=== PATIENT | female | born 1960 | race Caucasian/White ===

== ENCOUNTER → 2016-09-18 | Outpatient (CLI) | payer BC ==
--- NOTE | 2016-09-21 21:51 | DI ---
MRI LUMBAR SPINE SCAN WITHOUT IV CONTRAST, 09/18/2016 1:48 PM: Clinical History: Low back pain. Previous Exam: None. Technique: Sagittal and axial T2 weighted; sagittal T1 weighted and T2 STIR; and axial PD. The vertebral bodies are of normal height and size. There is minimal disc space narrowing at L4-5. Th e remaining lumbar disc spaces are of normal height. Moderate desiccation change is present at L4-5 a nd the remaining lumbar disc spaces show mild desiccation change. The cord terminates at L1, and the conus medullaris is normal. There is a bulging but not herniated disc without canal or neural foramin al stenosis at T11-12. The T12-L1 disc space is normal. The L1-2 disc space has a circumferentially b ulging but not herniated disc without canal or neural foraminal stenosis. L2-3 and L3-4 disc spaces a re normal. L4-5 has a circumferentially and primarily left sided bulging but not herniated disc witho ut canal or neural foraminal stenosis. L5-S1 disc space has a bulging but not herniated disc without canal or neural foraminal stenosis. Readin. There are bulging but not herniated discs without canal or neural foraminal stenosis at T11-12, L 1-2, L4-5, and L5-S1. 2. The T12-L1, L2-3, and L3-4 disc spaces are normal.
== END ==
LOC: MRI 13:41
PROVIDERS: ATTEND Chiropractor
DX: M54.5 Low back pain (principal); M47.816 Spondylosis without myelopathy or radiculopathy, lumbar region; M47.817 Spondylosis without myelopathy or radiculopathy, lumbosacral region
CPT/HCPCS: 72148

== ENCOUNTER → 2017-01-15 | Outpatient (CLI) | payer BC ==
--- NOTE | 2017-01-15 17:56 | DI ---
CT HEAD SCAN WITHOUT IV CONTRAST, 01/15/2017 2:38 PM : Clinical History: Trigeminal neuralgia of the left side of the face Previous Exam: None at this facility. Scans are obtained from the foramen magnum to the vertex without IV contrast. The 4th, 3rd, and lateral ventricles are of normal size, shape, position, and contour. There are no abnormal areas of increased or decreased density. There is no intracranial hemorrhage. Bone window evaluation is normal. The paranasal sinuses are normal. READING: Normal non contrast CT head scan.
--- NOTE | 2017-01-15 17:56 | DI ---
US CAROTIDS B/L,01/15/2017 2:38 PM: Clinical History: Trigeminal neurology of the left side of the face. Previous Exam: None at this facility. Findings: Multiple grayscale and color Doppler sonographic images are obtained through the carotid systems bila terally demonstrating no hemodynamically significant stenosis. There is no spectral broadening. The I CA to CCA ratio on the right measured 1.2, left measured 0.7. There is antegrade flow within the vert ebral arteries. Impression: No hemodynamically significant stenosis.
== END ==
LOC: US 14:32
PROVIDERS: ATTEND Family Medicine
DX: G50.0 Trigeminal neuralgia (principal); G51.0 Bell's palsy
CPT/HCPCS: 70450; 93880

== ENCOUNTER → 2017-01-22 | Outpatient (CLI) | payer BC ==
--- NOTE | 2017-01-24 10:55 | DI ---
MRI BRAIN W/WO ANGELIC,01/22/2017 10:05 AM: Clinical History: Left hemifacial paralysis. Previous Exam: None at this facility. Findings: Multiplanar MR images are obtained through the brain both with and without contrast, and demonstrate normal, symmetric ventricles and other CSF containing spaces for age. There is no mass, hemorrhage or midline shift. Surrounding soft tissue structures are unremarkable. There are a few scattered areas of increased FLAIR and T2 signal predominantly within the right periv entricular white matter. There is no abnormally restricted diffusion. Visualized portions of the clivus and the upper cervical spine are unremarkable. The midline structures are unremarkable. The sellar and parasellar regions are unremarkable. Post enhanced T1 images demonstrate no enhancement of the areas of increased T2 signal. Brain stem is unremarkable. The paranasal sinuses are unremarkable. Impression: Few scattered areas of increased T2 and FLAIR signal throughout the white matter of the colon radiat a. This most likely represents age-appropriate small vessel ischemic change.
== END ==
LOC: MRI 09:58
PROVIDERS: ATTEND Psychiatry & Neurology Neurology
DX: G51.3 Clonic hemifacial spasm (principal); Z01.812 Encounter for preprocedural laboratory examination
CPT/HCPCS: 36415; 70553; 82565; 84520